=== PATIENT | male | born 1975 ===

== ENCOUNTER 2021-04-27 13:07 | Inpatient (IN) | payer OTHER ==
[~2021-04-27] VITALS: Ht 170.2 cm; Wt 81.3 kg
[2021-04-27 14:03] LABS: Basophils # (auto) 0.1 10 ^3/uL (0-0.2); Basophils % (auto) 0.6 % (0.0-2.0); Eosinophils # (auto) 0.1 10 ^3/uL (0-0.8); Hematocrit 46.5 % (41.0-53.0); Hemoglobin 15.7 g/dL (13.5-17.5); Lymphocytes # (auto) 1.6 10 ^3/uL (0.4-5.4); Mean Corpuscular Hgb Conc. 33.8 g/dL (32.0-36.0); Mean Corpuscular Volume 85.9 fL (80.0-100.0); Monocytes # (auto) 0.6 10 ^3/uL (0-1.3); Monocytes % (auto) 5.6 % (0.0-12.0); Neutrophils # (auto) 8.3 10 ^3/uL (1.6-8.6); Neutrophils % (auto) 77.8 % (37.0-80.0); Red Blood Cells 5.41 10^6/uL (4.5-5.90); White Blood Cell 10.7 10^3/uL (4.4-10.8)
[2021-04-27 14:19] LABS: Albumin 4.6 g/dL (3.4-5.0); BUN/Creatinine Ratio 18.9; Calcium 8.7 mg/dL (8.5-10.1); Magnesium 2.5 mg/dL (1.6-2.6); Potassium 4.1 mmol/L (3.5-5.1)
[2021-04-27 14:24] LABS: Bilirubin, Total 0.4 mg/dL (0.2-1.0); Total Protein 8.3 g/dL (6.4-8.2)
[2021-04-27] MEDS ORDERED: ASPirin 325 MG TAB ONE (14:53)
[2021-04-27] MEDS ORDERED: ASPirin-EC 325mg tab PO ONE (15:00)
[2021-04-27] MEDS ORDERED: ASPirin 81 mg TAB PO ONE (16:00)
[2021-04-27] MEDS ORDERED: MORPHINE SULFATE 4 MG/ML SYR/VIAL IV ONE (16:15)
[2021-04-27] MEDS ORDERED: ONDANSETRON HCL 4 MG/2 ML VIAL IV ONE (16:15)
[2021-04-27 16:59] LABS: INR 1.03 (0.9-1.15); Partial Thromboplastin Time 23.9 sec (23.0-31.2)
[2021-04-27] MEDS ORDERED: MORPHINE SULF INJ 2 MG/ML SYRINGE 1ML IV PRN (17:30)
[2021-04-27] MEDS ORDERED: NITROGLYCERIN 0.4 MG SL TAB SL PRN (17:30)
[2021-04-27] MEDS ORDERED: DEXTROSE (50%) 50ML SYRG IV PRN (17:30)
[2021-04-27] MEDS ORDERED: CLOPIDOGREL BISULFATE 75 MG TAB PO ONE (17:45)
[2021-04-27] MEDS ORDERED: NITROGLYCERIN 0.4 MG SL TAB SL ONE (17:45)
[2021-04-27] MEDS ORDERED: ONDANSETRON HCL 4 MG/2 ML VIAL IV PRN (18:00)
[2021-04-27] MEDS ORDERED: HYDROcodone-ACET 10/325MG TAB PO PRN (18:00)
[2021-04-27 22:00] VITALS: BP 119/74
[2021-04-27] MEDS: InsuLIN REG 1unit/0.01ml Soln (100units/ml) SC SCH (22:00)
[2021-04-27] MEDS ORDERED: ACCU-CHEK COMFORT CURVE STRIP VI SCH (22:00)
[2021-04-27] MEDS: ACCU-CHEK COMFORT CURVE STRIP VI SCH (23:15)
[2021-04-27] MEDS: ENOXAPARIN SOD 80 MG/0.8ML SYRINGE SC SCH (23:25)
[2021-04-28 01:17] VITALS: BP 119/74
[2021-04-28 05:00] VITALS: BP 110/72
[2021-04-28 07:56] LABS: Urine Bacteria NONE SEEN /hpf (None Seen); Urine Blood Negative /uL (Negative); Urine Specific Gravity 1.018 (1.001-1.035); Urine WBC 1 /hpf (0 - 3)
[2021-04-28 09:00] VITALS: BP 114/61
[2021-04-28] MEDS: ACCU-CHEK COMFORT CURVE STRIP VI SCH ×2 (10:00→22:00)
[2021-04-28] MEDS: METOPROLOL SUCCINATE XL 50 MG TAB PO SCH (10:00)
[2021-04-28] MEDS: ENOXAPARIN SOD 80 MG/0.8ML SYRINGE SC SCH (10:00)
[2021-04-28] MEDS: InsuLIN REG 1unit/0.01ml Soln (100units/ml) SC SCH ×2 (10:00→22:00)
[2021-04-28] MEDS: ASPirin 81 mg TAB PO SCH (10:02)
[2021-04-28] MEDS: SOD CHL 0.45% 1,000 ML IV SCH ×3 (14:23→22:45)
[2021-04-28] MEDS ORDERED: LIDOCAINE 2%HCL (LOCAL ANESTH.) INJ 20ML MDV ONE (17:13)
[2021-04-28] MEDS ORDERED: IODIXANOL 320MG/ML 100ML BTL IV ONE (17:13)
[2021-04-28] MEDS ORDERED: VERAPAMIL 2.5MG/ML INJ 2ML VIAL IV ONE (17:19)
[2021-04-28] MEDS ORDERED: SODIUM CHL 0.9% 50 ML ONE (17:19)
[2021-04-28] MEDS ORDERED: MIDAZOLAM HCL 1MG/1ML-2 ML VIAL ONE (17:19)
[2021-04-28] MEDS ORDERED: ANGIOMAX 250 MG VIAL IV ONE (17:19)
[2021-04-28] MEDS ORDERED: fentaNYL CITRATE 100 MCG/2 ML VL ONE (17:19)
[2021-04-28] MEDS ORDERED: TICAGRELOR 90 MG TAB ONE (18:32)
[2021-04-28] MEDS ORDERED: ASPirin 325 MG TAB ONE (18:33)
[2021-04-28] MEDS: TICAGRELOR 90 MG TAB PO SCH ×2 (18:47→22:00)
[2021-04-28] MEDS ORDERED: SODIUM CHLORIDE 0.9% 1,000 ML IV ONE (19:00)
[2021-04-28 22:00] VITALS: BP 134/88
[2021-04-28] MEDS ORDERED: ATORVASTATIN 20 MG TAB PO SCH (22:00)
[2021-04-29 05:00] VITALS: BP 118/65
[2021-04-29] MEDS: SOD CHL 0.45% 1,000 ML IV SCH ×3 (05:00→18:45)
[2021-04-29 05:47] LABS: Potassium 3.7 mmol/L (3.5-5.1)
[2021-04-29 05:56] LABS: Albumin 3.4 g/dL (3.4-5.0); BUN/Creatinine Ratio 18.3; Bilirubin, Total 0.5 mg/dL (0.2-1.0); Calcium 7.9 mg/dL (8.5-10.1); Total Protein 6.8 g/dL (6.4-8.2)
[2021-04-29] MEDS: METOPROLOL SUCCINATE XL 50 MG TAB PO SCH (08:40)
[2021-04-29] MEDS: ASPirin 81 mg TAB PO SCH (08:40)
[2021-04-29] MEDS: TICAGRELOR 90 MG TAB PO SCH ×2 (08:40→21:31)
[2021-04-29 09:00] VITALS: BP 152/86
[2021-04-29] MEDS: ACCU-CHEK COMFORT CURVE STRIP VI SCH (10:00)
[2021-04-29] MEDS: InsuLIN REG 1unit/0.01ml Soln (100units/ml) SC SCH (10:00)
[2021-04-29 13:00] VITALS: BP 132/84
[2021-04-29 17:00] VITALS: BP 127/88
[2021-04-29 22:00] VITALS: BP 145/88
[2021-04-30] MEDS: SOD CHL 0.45% 1,000 ML IV SCH ×2 (04:54→14:45)
[2021-04-30 05:30] VITALS: BP 132/87
[2021-04-30 09:04] VITALS: BP 138/80
[2021-04-30] MEDS: ASPirin 81 mg TAB PO SCH (09:55)
[2021-04-30] MEDS: METOPROLOL SUCCINATE XL 50 MG TAB PO SCH (09:56)
[2021-04-30] MEDS: TICAGRELOR 90 MG TAB PO SCH (09:56)
[2021-04-30] MEDS ORDERED: CLOP75TA28 PO (10:43)
[2021-04-30] MEDS ORDERED: METO-6 PO (10:43)
[2021-04-30] MEDS ORDERED: ASPI1CHW15 PO (10:43)
[2021-04-30 12:33] VITALS: BP 138/80
[2021-04-30 13:00] VITALS: BP 127/82
== END 2021-04-30 16:00 | DRG 247 ==
LOC: ER 13:07 → EEVIPCON 13:07 → EDBD 13:07 → TELE 19:06 → TELE-WESTW 22:09
PROVIDERS: ADMIT Internal Medicine; ATTEND Internal Medicine
PROC: 027035Z Dilation of Coronary Artery, One Artery with Two Drug-eluting Intraluminal Devices, Percutaneous Approach (ICD-10-PCS; principal; 2021-04-28)
PROC: 4A023N7 Measurement of Cardiac Sampling and Pressure, Left Heart, Percutaneous Approach (ICD-10-PCS; 2021-04-28)
PROC: B211YZZ Fluoroscopy of Multiple Coronary Arteries using Other Contrast (ICD-10-PCS; 2021-04-28)
PROC: B215YZZ Fluoroscopy of Left Heart using Other Contrast (ICD-10-PCS; 2021-04-28)
PROC: B240ZZ3 Ultrasonography of Single Coronary Artery, Intravascular (ICD-10-PCS; 2021-04-28)
PROC: 03HY32Z Insertion of Monitoring Device into Upper Artery, Percutaneous Approach (ICD-10-PCS; 2021-04-28)
DX: I25.10 Atherosclerotic heart disease of native coronary artery without angina pectoris (principal); E11.9 Type 2 diabetes mellitus without complications; Z20.822 Contact with and (suspected) exposure to COVID-19; I10 Essential (primary) hypertension; E78.5 Hyperlipidemia, unspecified; Z87.891 Personal history of nicotine dependence; Z79.899 Other long term (current) drug therapy
CPT/HCPCS: 36415; 71045; 80053; 81001; 82962; 83735; 83880; 84443; 84484; 85025; 85610; 85730; 86850; 86900; 86901; 87426; 93005; 96372; 99152; 99153; C1874; G0378; J1815; J2250; Q9967